=== PATIENT | male | born 1980 | race Caucasian/White ===

== ENCOUNTER 2021-10-30 12:36 | Inpatient (IN) | payer OTHER ==
[~2021-10-30] VITALS: Ht 198.1 cm; Wt 126.0 kg
[2021-10-30 13:25] LABS: BASOPHILS ABSOLUTE AUTO 0.07 K/mm3 (0.00-0.23); BASOPHILS PERCENT AUTO 0 % (0-2); EOSINOPHILS ABSOLUTE AUTO 0.23 K/mm3 (0.00-0.68); EOSINOPHILS PERCENT AUTO 2 % (0-6); Hematocrit 51.9 % (37.0-53.0); Hemoglobin 17.9 g/dL (13.5-17.5); IMMATURE GRAN PERCENT AUTO 1 % (0-1); LYMPHOCYTES ABSOLUTE AUTO 1.44 K/mm3 (0.84-5.20); LYMPHOCYTES PERCENT AUTO 9 % (21-46); MONOCYTES PERCENT AUTO 6 % (4-13); Mean Corpuscular HGB Conc 34.5 g/dL (31.5-36.5); Mean Corpuscular Volume 78 fL (80-100); Mean Platelet Volume 8.5 fL (9.1-12.4); NEUTROPHILS ABSOLUTE AUTO 12.77 K/mm3 (1.96-9.15); NEUTROPHILS PERCENT AUTO 82 % (41-73); Platelet Count 249 K/mm3 (150-400); RDW Coefficient Variation 11.7 % (11.7-14.2); Red Blood Cell Count 6.64 M/mm3 (4.30-5.90); White Blood Cell Count 15.61 K/mm3 (4.00-11.30)
[2021-10-30 13:42] LABS: Anion Gap 11 mmol/L (6-16); Blood Urea Nitrogen 18 mg/dL (8-24); Bun/Creatinine Ratio 23.3 (12.0-20.0); CO2, Blood 22 mmol/L (21-32); Calcium, Blood 9.3 mg/dL (8.5-10.1); Chloride, Blood 97 mmol/L (98-108); Creatinine, Blood 0.77 mg/dL (0.60-1.20); Glomerular Filtration Rate >60 (60-); Glucose, Blood 344 mg/dL (70-99); Potassium, Blood 4.4 mmol/L (3.5-5.5); Sodium, Blood 130 mmol/L (136-145)
[2021-10-30] MEDS ORDERED: GLIM2 PO (14:00)
[2021-10-30] MEDS ORDERED: LISI5 PO (14:00)
[2021-10-30] MEDS ORDERED: INSULANI SC (14:00)
[2021-10-30] MEDS ORDERED: MULTI-VITAMIN1 EAC2 PO (17:41)
[2021-10-30] MEDS ORDERED: COQ1050 MG PO (17:42)
--- NOTE | 2021-10-30 20:28 | NUR ---
PT ADMITTED TO ROOM 361 FROM ED APPROX 1715, AMBULATED TO BED INDEPENDANT. STATES HE IS NOT TOO UNCOMFORTABLE IF HE LAYS ON HIS SIDE, DECLINED PAIN MEDS. ORIENTED TO ROOM SET UP AND SAFETY. IVF STARTED AND ABX. WILL MEDICATE AND DRAIN ABCESS PER ORDER AFTER ADMISSION HX OBTAINED.
--- NOTE | 2021-10-30 20:29 | NUR ---
SUMM- PT ABCESS DRAINED LG AMOUNTS OF BEVERLY COLOR/PURULANT DISCHARGE WHEN PRESSED LIGHTLY. TOO PAINFUL FOR DEEP DRAINAGE. APPROX 75ML OF DRAINAGE. NOC RN WILL OBTIAN PICTURES. PT TOLERATING FOOD AND FLUID. HAS IVF INFUSING. STATES HE FEELS ALOT BETTER SINCE THE 3L OF NS IN THE ED. VICODIN AND TORADOL HELPFUL FOR COMFORT, BUT ABCESS EXTREMELY PAINFUL TO TOUCH. LAYING ON THE SIDE. CLEANSED ABCESS OPENING WITH NS AND WOUND CLEANSER, ABD AND UNDERWARE TO SECURE. WILL ORDER HEAT PAD AND TRY TO EXPELL MORE LATER.
[2021-10-31 06:12] LABS: BASOPHILS ABSOLUTE AUTO 0.05 K/mm3 (0.00-0.23); BASOPHILS PERCENT AUTO 0 % (0-2); EOSINOPHILS ABSOLUTE AUTO 0.31 K/mm3 (0.00-0.68); EOSINOPHILS PERCENT AUTO 3 % (0-6); Hematocrit 45.6 % (37.0-53.0); Hemoglobin 15.6 g/dL (13.5-17.5); IMMATURE GRAN ABSOLUTE AUTO 0.08 K/mm3 (0.00-0.10); IMMATURE GRAN PERCENT AUTO 1 % (0-1); LYMPHOCYTES ABSOLUTE AUTO 1.14 K/mm3 (0.84-5.20); LYMPHOCYTES PERCENT AUTO 10 % (21-46); MONOCYTES ABSOLUTE AUTO 0.84 K/mm3 (0.16-1.47); MONOCYTES PERCENT AUTO 7 % (4-13); Mean Corpuscular HGB 26.9 pg (26.0-34.0); Mean Corpuscular HGB Conc 34.2 g/dL (31.5-36.5); Mean Corpuscular Volume 79 fL (80-100); Mean Platelet Volume 8.7 fL (9.1-12.4); NEUTROPHILS ABSOLUTE AUTO 9.22 K/mm3 (1.96-9.15); NEUTROPHILS PERCENT AUTO 79 % (41-73); Platelet Count 226 K/mm3 (150-400); RDW Coefficient Variation 11.9 % (11.7-14.2); RDW Standard Deviation 33.7 fL (35.1-46.3); Red Blood Cell Count 5.81 M/mm3 (4.30-5.90); White Blood Cell Count 11.64 K/mm3 (4.00-11.30)
[2021-10-31 06:38] LABS: Anion Gap 6 mmol/L (6-16); Blood Urea Nitrogen 21 mg/dL (8-24); Bun/Creatinine Ratio 29.5 (12.0-20.0); CO2, Blood 23 mmol/L (21-32); Calcium, Blood 8.8 mg/dL (8.5-10.1); Chloride, Blood 104 mmol/L (98-108); Creatinine, Blood 0.71 mg/dL (0.60-1.20); Glomerular Filtration Rate >60 (60-); Glucose, Blood 355 mg/dL (70-99); Potassium, Blood 4.2 mmol/L (3.5-5.5); Sodium, Blood 133 mmol/L (136-145)
--- NOTE | 2021-10-31 06:42 | NUR ---
SHIFT SUMMARY AOX4. VSS. REPORTS 0-4/10 PAIN IN R GLUTE ABCESS. AT SHIFT CHANGE LAST NIGHT BOTH MYSELF & DAY NURSE PROVIDED WOUND CARE & EXPRESSED MOD AMOUNT BEVERLY COLOR PURULENT DRAINAGE & AFTER PT STATED HE FELT BETTER. HE REPORTS NO PAIN UNLESS ABCESS SITE TOUCHED. SKIN AROUND ABCESS IS RED, SWOLLEN, TENDER, DISCOLORED, THERE IS WHITE TISSUE ROUGHLY THE SIZE OF A DIME NOTED & DRAINAGE WEEPING OUT AROUND WHEN PRESSURE PLACED ON SKIN. RECIEVING IV ANTIBIOTICS, PENDING CULTURES FOR DC PLAN. CALL LIGHT IN REACH & PT ABLE TO MAKE NEEDS KNOWN.
[2021-10-31 17:21] LABS: Vancomycin, Trough 9.9 ug/mL (5.0-10.0)
--- NOTE | 2021-11-01 04:55 | NUR ---
SHIFT SUMMARY NO ACUTE CHANGES THIS SHIFT. AOX4. VSS. DENIES PAIN EXCEPT c PALPATION AROUND ABCESS SITE, THEN PAIN 2/10 HOWEVER TOLERABLE. DENIES NEED FOR PAIN MEDS. ABCESS SITE HAD ONLY SMALL AMOUNT BEVERLY PURULENT DRAINAGE TONIGHT, MUCH LESS THEN PREVIOUS NIGHT. HS CBG @498, INFORMED DR NEWSOME & HE ORDERED 15U LEVEMIR & SS INCULIN TO BE GIVEN @HS. PT HOPING TO DC HOME TODAY, STATES HE FEELS BETTER. CALL LIGHT IN REACH, WILL MONITOR.
[2021-11-01 08:19] LABS: Hematocrit 47.5 % (37.0-53.0); Mean Corpuscular HGB 26.9 pg (26.0-34.0); Mean Corpuscular HGB Conc 33.7 g/dL (31.5-36.5); Mean Corpuscular Volume 80 fL (80-100); Mean Platelet Volume 8.9 fL (9.1-12.4); Platelet Count 215 K/mm3 (150-400); RDW Coefficient Variation 11.8 % (11.7-14.2); RDW Standard Deviation 34.1 fL (35.1-46.3); Red Blood Cell Count 5.95 M/mm3 (4.30-5.90); White Blood Cell Count 6.82 K/mm3 (4.00-11.30)
[2021-11-01 08:36] LABS: Albumin, Blood 2.5 g/dL (3.4-5.0); Anion Gap 9 mmol/L (6-16); Blood Urea Nitrogen 14 mg/dL (8-24); Bun/Creatinine Ratio 20.7 (12.0-20.0); CO2, Blood 23 mmol/L (21-32); Calcium, Blood 8.6 mg/dL (8.5-10.1); Chloride, Blood 105 mmol/L (98-108); Creatinine, Blood 0.68 mg/dL (0.60-1.20); Glomerular Filtration Rate >60 (60-); Glucose, Blood 380 mg/dL (70-99); Phosphorus, Blood 3.5 mg/dL (2.5-4.9); Potassium, Blood 4.1 mmol/L (3.5-5.5); Sodium, Blood 137 mmol/L (136-145)
--- NOTE | 2021-11-02 05:15 | NUR ---
SHIFT SUMMARY AOX4. VSS. DENIES ANY PAIN @ABCESS SITE UNLESS TOUCHED DURING WOUND CARE. WOUND HAD ONLY SMALL AMOUNT BLOODY PURULENT DRAINAGE, SKIN AROUND ABCESS RED, FIRM, TENDER c LONG WHITE/JUAREZ FIBEROUS STRINGY TISSUE HANGING OUT OF WOUND BED. HS CBG @215, BETTER CONTROLLED THEN PREVIOUS NIGHT. PT HOPING TO DC HOME TODAY. CALL LIGHT IN REACH & PT ABLE TO MAKE NEEDS KNOWN. WILL MONITOR.
[2021-11-02 05:29] LABS: Albumin, Blood 2.7 g/dL (3.4-5.0); Anion Gap 5 mmol/L (6-16); Blood Urea Nitrogen 15 mg/dL (8-24); Bun/Creatinine Ratio 22.3 (12.0-20.0); CO2, Blood 27 mmol/L (21-32); Chloride, Blood 105 mmol/L (98-108); Creatinine, Blood 0.67 mg/dL (0.60-1.20); Glomerular Filtration Rate >60 (60-); Glucose, Blood 169 mg/dL (70-99); Phosphorus, Blood 3.3 mg/dL (2.5-4.9); Potassium, Blood 3.6 mmol/L (3.5-5.5); Sodium, Blood 137 mmol/L (136-145)
[2021-11-02] MEDS ORDERED: Acetaminophen325 M1 PO (13:29)
[2021-11-02] MEDS ORDERED: HUMALOG KW100 UNIT/1 SC ×2 (13:30→13:32)
[2021-11-02] MEDS ORDERED: AMOCLA875 PO (13:31)
[2021-11-02] MEDS ORDERED: VISBIOME 112.51 EACH PO (13:31)
== END 2021-11-02 15:24 | disposition home or self-care (01) | DRG 872 ==
LOC: ER 12:36 → MEDS 15:55
PROVIDERS: Emergency Medicine; ADMIT Internal Medicine
DX: A40.1 Sepsis due to streptococcus, group B (principal); L03.317 Cellulitis of buttock; K61.0 Anal abscess; E87.1 Hypo-osmolality and hyponatremia; L02.31 Cutaneous abscess of buttock; E86.0 Dehydration; L40.9 Psoriasis, unspecified; E11.65 Type 2 diabetes mellitus with hyperglycemia; I10 Essential (primary) hypertension; E66.9 Obesity, unspecified; Z68.32 Body mass index [BMI] 32.0-32.9, adult; Z86.14 Personal history of Methicillin resistant Staphylococcus aureus infection; Z98.890 Other specified postprocedural states; Z79.4 Long term (current) use of insulin; Z79.899 Other long term (current) drug therapy
CPT/HCPCS: 36415; 72193; 80048; 80069; 80202; 82947; 83036; 83605; 85025; 85027; 87040; 87070; 87075; 87147; 87205; 96365; 99284-25; A9270; J0295; J1650; J1815; J1885; J2543; J3370; J7030; J7040; J7050; J7060; Q9967

== ENCOUNTER 2025-03-10 18:09 | Inpatient (IN) | payer OTHER ==
[~2025-03-10] VITALS: Ht 195.6 cm; Wt 101.5 kg
[~2025-03-10 18:09] MED LIST: AMOCLA875 PO; Acetaminophen325 M1 PO; COQ1050 MG PO; GLIM2 PO; HUMALOG KW100 UNIT/1 SC; INSULANI SC; LISI5 PO; MULTI-VITAMIN1 EAC2 PO; VISBIOME 112.51 EACH PO
[2025-03-10] MEDS ORDERED: Ondansetron HCl 2 MG / ML 2ML Vial IV ONE (18:35)
[2025-03-10 19:08] LABS: BASOPHILS ABSOLUTE AUTO 0.07 K/mm3 (0.00-0.23); BASOPHILS PERCENT AUTO 0 % (0-2); EOSINOPHILS ABSOLUTE AUTO 0.07 K/mm3 (0.00-0.68); EOSINOPHILS PERCENT AUTO 0 % (0-6); Hematocrit 47.9 % (37.0-53.0); Hemoglobin 17.3 g/dL (13.5-17.5); IMMATURE GRAN ABSOLUTE AUTO 0.20 K/mm3 (0.00-0.10); IMMATURE GRAN PERCENT AUTO 1 % (0-1); LYMPHOCYTES ABSOLUTE AUTO 1.83 K/mm3 (0.84-5.20); LYMPHOCYTES PERCENT AUTO 11 % (21-46); MONOCYTES ABSOLUTE AUTO 1.04 K/mm3 (0.16-1.47); MONOCYTES PERCENT AUTO 7 % (4-13); Mean Corpuscular HGB Conc 36.1 g/dL (31.5-36.5); Mean Corpuscular Volume 76 fL (80-100); NEUTROPHILS ABSOLUTE AUTO 12.78 K/mm3 (1.96-9.15); NEUTROPHILS PERCENT AUTO 80 % (41-73); NRBC ABSOLUTE 0.00 K/mm3 (0.00-0.02); NRBC Auto 0.0 /100 WBC (0.0-0.2); Platelet Count 377 K/mm3 (150-400); RDW Coefficient Variation 12.3 % (11.7-14.2); RDW Standard Deviation 33.6 fL (35.1-46.3)
[2025-03-10 19:55] LABS: Alanine Aminotransfer (ALT/SGP 15 U/L (12-78); Albumin, Blood 2.6 g/dL (3.4-5.0); Albumin/Globulin Ratio 0.4 (0.8-1.8); Anion Gap 19 mmol/L (3-11); Aspartate Aminotrans (AST/SGOT 5 U/L (12-37); Bilirubin, Total 0.5 mg/dL (0.1-1.0); Blood Urea Nitrogen 10 mg/dL (8-24); CO2, Blood 13 mmol/L (21-32); Calcium, Blood 9.7 mg/dL (8.5-10.1); Chloride, Blood 100 mmol/L (98-108); Creatinine, Blood 0.52 mg/dL (0.60-1.20); Globulin, Blood 5.8 g/dL (2.2-4.0); Glucose, Blood 280 mg/dL (70-99); Potassium, Blood 3.7 mmol/L (3.5-5.5); Sodium, Blood 128 mmol/L (136-145); Total Protein, Blood 8.4 g/dL (6.4-8.2)
[2025-03-10] MEDS ORDERED: Piperacillin/Tazobactam Sod 4.5 GM in NS 100 ML IV ONE (23:30)
[2025-03-10] MEDS ORDERED: Vancomycin (Pharmacy Consult) IV PRN (23:30)
[2025-03-11] VITALS (17 sets, daily range): BP systolic 126–152; BP diastolic 76–94
[2025-03-11 00:28] LABS: C-REACTIVE PROTEIN, EXT RANGE >19.000 mg/dL (0.000-0.300)
[2025-03-11] MEDS ORDERED: Vancomycin HCL 2,500 MG in NS 500 ML IV ONE (00:55)
[2025-03-11] MEDS ORDERED: Clindamycin 600mg in D5W 50 ML IV ONE (01:50)
[2025-03-11] MEDS ORDERED: Ondansetron HCl 2 MG / ML 2ML Vial IV PRN (03:10)
[2025-03-11] MEDS ORDERED: Vancomycin (Pharmacy Consult) IV SCH (03:10)
[2025-03-11] MEDS ORDERED: HydrALAZINE HCl 20 MG / ML 1ML Vial IV PRN (03:20)
[2025-03-11] MEDS ORDERED: NS 1,000 ML IV SCH ×2 (04:00→08:25)
[2025-03-11 04:30] LABS: U Amphetamine Screen Not Detected; U Barbituate Screen Not Detected; U Benzodiazapine Screen Not Detected; U Buprenorphine Screen Not Detected; U Cannabinoids Screen Not Detected; U Cocaine Screen Not Detected; U Methadone Screen Not Detected; U Methamphetamine Screen Not Detected; U Opiates Screen Not Detected; U Oxycodone Screen Not Detected; U Phencyclidine Screen Not Detected
[2025-03-11] MEDS ORDERED: Piperacillin/Tazobactam Sod 4.5 GM in NS 100 ML IV SCH (06:00)
[2025-03-11] MEDS ORDERED: HUMIRA40 MG/0.2 INJ (06:14)
[2025-03-11 06:55] LABS: BASOPHILS ABSOLUTE AUTO 0.08 K/mm3 (0.00-0.23); BASOPHILS PERCENT AUTO 1 % (0-2); EOSINOPHILS ABSOLUTE AUTO 0.05 K/mm3 (0.00-0.68); EOSINOPHILS PERCENT AUTO 0 % (0-6); Hematocrit 45.2 % (37.0-53.0); Hemoglobin 15.6 g/dL (13.5-17.5); IMMATURE GRAN ABSOLUTE AUTO 0.33 K/mm3 (0.00-0.10); IMMATURE GRAN PERCENT AUTO 2 % (0-1); LYMPHOCYTES ABSOLUTE AUTO 1.80 K/mm3 (0.84-5.20); LYMPHOCYTES PERCENT AUTO 12 % (21-46); MONOCYTES ABSOLUTE AUTO 1.12 K/mm3 (0.16-1.47); MONOCYTES PERCENT AUTO 8 % (4-13); Mean Corpuscular HGB Conc 34.5 g/dL (31.5-36.5); Mean Corpuscular Volume 78 fL (80-100); NEUTROPHILS ABSOLUTE AUTO 11.46 K/mm3 (1.96-9.15); NEUTROPHILS PERCENT AUTO 77 % (41-73); NRBC ABSOLUTE 0.00 K/mm3 (0.00-0.02); NRBC Auto 0.0 /100 WBC (0.0-0.2); Platelet Count 334 K/mm3 (150-400); RDW Coefficient Variation 12.6 % (11.7-14.2); RDW Standard Deviation 35.5 fL (35.1-46.3)
--- NOTE | 2025-03-11 07:00 | NUR ---
ARRIVAL TO SURGICAL UNIT ROOM 228 FROM ER AT 0550. PT A/O X4, DRESSING TO RLE IS C/D/I. PT STOOD AND TRANSFERED TO BED FROM [facility]. PT ORIENTED TO ROOM, CALL LIGHT, AND UNIT POLICIES. UPON CHANGING INTO GOWN AND REMOVING SOCK FROM LLE, GREAT TOE IS NOTED TO BE BLACK AND ULCERATED. DISCUSSED WITH RADIOISOTOPE PRODUCTION OPERATOR, NOTIFIED DR. LEAL OF LEFT TOE ULCERATION.
[2025-03-11 07:07] LABS: Prothrombin Time Results 12.2 Sec (9.7-11.5)
[2025-03-11 07:19] LABS: Alanine Aminotransfer (ALT/SGP 13 U/L (12-78); Albumin, Blood 2.4 g/dL (3.4-5.0); Albumin/Globulin Ratio 0.5 (0.8-1.8); Anion Gap 20 mmol/L (3-11); Aspartate Aminotrans (AST/SGOT 7 U/L (12-37); Bilirubin, Total 0.4 mg/dL (0.1-1.0); Blood Urea Nitrogen 9 mg/dL (8-24); CHOL/HDL RATIO 3.9; CO2, Blood 11 mmol/L (21-32); Calcium, Blood 8.9 mg/dL (8.5-10.1); Chloride, Blood 104 mmol/L (98-108); Cholesterol 135 mg/dL (50-200); Creatinine, Blood 0.57 mg/dL (0.60-1.20); Globulin, Blood 5.0 g/dL (2.2-4.0); Glucose, Blood 289 mg/dL (70-99); HDL Cholesterol 35 mg/dL (>39); LDL/HDL RATIO 2.4; Low Density Lipoprotein Chol 83 mg/dL (0-110); Potassium, Blood 3.7 mmol/L (3.5-5.5); Sodium, Blood 131 mmol/L (136-145); Total Protein, Blood 7.4 g/dL (6.4-8.2); Triglycerides 86 mg/dL (30-160); Very Low Density Lipoprot Chol 17 mg/dL (6-32)
[2025-03-11] MEDS ORDERED: Insulin Regular 100 UNIT/ML 10ML Vial SC SCH (07:30)
--- NOTE | 2025-03-11 07:42 | NUR ---
DR. LEAL AT BEDSIDE THIS AM. NEW ORDERS RECEIVED FOR DRESSING OF LEFT TOE WOUND. GENTLY CLEAN, AND DRESS WITH XEROFORM AND GAUZE.
[2025-03-11] MEDS ORDERED: Clindamycin 600mg in D5W 50 ML IV SCH (08:00)
[2025-03-11] MEDS ORDERED: Lactobacil 2-S.Thermo-Bifido 1 1 Cap PO SCH (09:00)
[2025-03-11] MEDS ORDERED: Heparin Sodium,Porcine 5,000 UNIT/0.5 ML SDV SC SCH (09:00)
[2025-03-11 10:45] LABS: Anion Gap 19.0 mmol/L (3-11); Blood Urea Nitrogen 9.0 mg/dL (8-24); CO2, Blood 13.0 mmol/L (21-32); Calcium, Blood 8.9 mg/dL (8.5-10.1); Chloride, Blood 106.0 mmol/L (98-108); Creatinine, Blood 0.58 mg/dL (0.60-1.20); Glucose, Blood 274.0 mg/dL (70-99); Potassium, Blood 3.7 mmol/L (3.5-5.5); Sodium, Blood 134.0 mmol/L (136-145)
[2025-03-11] MEDS ORDERED: Bupivacaine 0.5% W/EPI 1:200000 SDV 30 ML Vial ONE (15:22)
[2025-03-11] MEDS ORDERED: FentaNYL Citrate 50 MCG/ML 2 ML Injection ONE (15:25)
--- NOTE | 2025-03-11 15:29 | NUR ---
PT HAS 20G IV TO LEFT AC THAT IS LEAKING, WILL START NEW PRIOR TO ROLLBACK TO OR.
--- NOTE | 2025-03-11 15:34 | NUR ---
PT TO OR AT ABOUT 1500
--- NOTE | 2025-03-11 15:35 | NUR ---
Pt brought from Surgical Floor via gurney to Day Surgery for procedure w/Dr. Arroyo. History, Chart, Medications and Allergies reviewed before start of procedure. Patient confirms NPO status and agrees with scheduled surgery. Pre-Op teaching done. Pt verbalizes understanding. Pt belongings left in personal room on surgical floor for safekeeping. Pt contact lenses removed and placed in PACU for safekeeping.
[2025-03-11] MEDS ORDERED: Ondansetron HCl 2 MG / ML 2ML Vial ONE (15:39)
[2025-03-11] MEDS ORDERED: Dexamethasone Sod Phos 10 MG/ML 1ML VIAL ONE (15:39)
[2025-03-11] MEDS ORDERED: Metoclopramide HCl 5MG / ML 2ML Vial IV PRN (15:50)
[2025-03-11] MEDS ORDERED: FentaNYL Citrate 50 MCG/ML 2 ML Injection IV PRN ×2 (15:55)
[2025-03-11] MEDS ORDERED: Labetalol HCL 5 MG/ML 4ML Injection (Single Dose) IV PRN (15:55)
[2025-03-11] MEDS ORDERED: HYDROmorphone HCl/Pf 1MG SYR IV PRN ×2 (15:55)
--- NOTE | 2025-03-11 17:29 | NUR ---
POST OP: REPORT RECEIVED FROM BEVERLY PLANT MANAGER. PT A/O ON ARRIVAL. SURGICAL SITE WNL. PT DENIES PAIN, ABLE TO WIGGLE TOES. BLE ELEVATED. ANTIBIOTIC STARTED. CALL LIGHT IN REACH
[2025-03-11 20:17] LABS: Anion Gap 18.0 mmol/L (3-11); Blood Urea Nitrogen 9.0 mg/dL (8-24); CO2, Blood 14.0 mmol/L (21-32); Calcium, Blood 8.7 mg/dL (8.5-10.1); Chloride, Blood 105.0 mmol/L (98-108); Creatinine, Blood 0.65 mg/dL (0.60-1.20); Glucose, Blood 281.0 mg/dL (70-99); Potassium, Blood 4.1 mmol/L (3.5-5.5); Sodium, Blood 133.0 mmol/L (136-145)
[2025-03-11] MEDS ORDERED: Insulin Glargine,Hum.Rec.Anlog 100 UNIT/ML 3MLSYR SC SCH (21:00)
[2025-03-11 21:46] LABS: pH Blood Venous 7.29 (7.34-7.37)
[2025-03-11 22:18] LABS: Anion Gap 17.0 mmol/L (3-11); Blood Urea Nitrogen 10.0 mg/dL (8-24); CO2, Blood 13.0 mmol/L (21-32); Calcium, Blood 8.9 mg/dL (8.5-10.1); Chloride, Blood 106.0 mmol/L (98-108); Creatinine, Blood 0.59 mg/dL (0.60-1.20); Glucose, Blood 262.0 mg/dL (70-99); Potassium, Blood 4.0 mmol/L (3.5-5.5); Sodium, Blood 132.0 mmol/L (136-145)
[2025-03-11] MEDS ORDERED: D5W-1/2NS 1,000 ML IV SCH (22:55)
[2025-03-11] MEDS ORDERED: Insulin Human Regular 100 UNIT in NS 100 ML IV SCH (23:05)
--- NOTE | 2025-03-11 23:34 | NUR ---
IN COMMUNICATION WITH JOSÉ MIGUEL TRAORE REGARDING LABS ORDERED BY DR BARFIELD AND FURTHER LABS WERE ORDERED BY JOSÉ MIGUEL.PER FOLLOW UP COMMUNICATION,ORDERS WERE RECEIVED TO TRANSFER PT TO ICU.
--- NOTE | 2025-03-11 23:51 | NUR ---
UPDATE PT TRANSFERRED TO ICU PER ORDERS VIA HOSPITAL BED. REPORT GIVEN TO RECEIVING RN AT THIS TIME. PT AND SPOUSE AWARE.
[2025-03-12] VITALS (21 sets, daily range): BP systolic 111–138; BP diastolic 66–97
[2025-03-12 00:50] LABS: BASOPHILS ABSOLUTE AUTO 0.06 K/mm3 (0.00-0.23); BASOPHILS PERCENT AUTO 0 % (0-2); EOSINOPHILS ABSOLUTE AUTO 0.00 K/mm3 (0.00-0.68); EOSINOPHILS PERCENT AUTO 0 % (0-6); Hematocrit 40.7 % (37.0-53.0); Hemoglobin 14.6 g/dL (13.5-17.5); IMMATURE GRAN ABSOLUTE AUTO 0.20 K/mm3 (0.00-0.10); IMMATURE GRAN PERCENT AUTO 1 % (0-1); LYMPHOCYTES ABSOLUTE AUTO 0.87 K/mm3 (0.84-5.20); LYMPHOCYTES PERCENT AUTO 6 % (21-46); MONOCYTES ABSOLUTE AUTO 0.50 K/mm3 (0.16-1.47); MONOCYTES PERCENT AUTO 3 % (4-13); Mean Corpuscular HGB Conc 35.9 g/dL (31.5-36.5); Mean Corpuscular Volume 77 fL (80-100); NEUTROPHILS ABSOLUTE AUTO 13.11 K/mm3 (1.96-9.15); NEUTROPHILS PERCENT AUTO 89 % (41-73); NRBC ABSOLUTE 0.00 K/mm3 (0.00-0.02); NRBC Auto 0.0 /100 WBC (0.0-0.2); Platelet Count 306 K/mm3 (150-400); RDW Coefficient Variation 12.6 % (11.7-14.2); RDW Standard Deviation 35.4 fL (35.1-46.3)
[2025-03-12 01:18] LABS: Anion Gap 20 mmol/L (3-11); Blood Urea Nitrogen 10 mg/dL (8-24); CO2, Blood 12 mmol/L (21-32); Calcium, Blood 8.7 mg/dL (8.5-10.1); Chloride, Blood 103 mmol/L (98-108); Creatinine, Blood 0.56 mg/dL (0.60-1.20); Glucose, Blood 324 mg/dL (70-99); Potassium, Blood 4.1 mmol/L (3.5-5.5); Sodium, Blood 131 mmol/L (136-145); Vancomycin, Trough 17.0 ug/mL (5.0-10.0)
[2025-03-12 06:22] LABS: Anion Gap 17.0 mmol/L (3-11); Blood Urea Nitrogen 8.0 mg/dL (8-24); CO2, Blood 12.0 mmol/L (21-32); Calcium, Blood 8.2 mg/dL (8.5-10.1); Chloride, Blood 106.0 mmol/L (98-108); Creatinine, Blood 0.51 mg/dL (0.60-1.20); Glucose, Blood 283.0 mg/dL (70-99); Potassium, Blood 4.6 mmol/L (3.5-5.5); Sodium, Blood 130.0 mmol/L (136-145)
[2025-03-12 06:32] LABS: Source, Urine Clean Catch
[2025-03-12 06:36] LABS: Bilirubin, Urine Neg (Neg); Glucose Qualitative, Urine 4+ (Neg); Ketones, Urine 4+ (Neg); Leukocyte Esterase, Urine Neg (Neg); Protein, Urine 1+ (Neg); Specific Gravity, Urine 1.025 (1.003-1.022); Urobilinogen, Urine NORM (Normal)
[2025-03-12 06:38] LABS: Color, Urine Pale Yellow (P-Yellow)
--- NOTE | 2025-03-12 06:59 | NUR ---
STAFF DEVELOPER SUMMARY: PATIENT TRANSFERED TO ICU 15. ALERT AND ORIENT X4. REPORTS NO PAIN AT THIS TIME. POD 1 RIGHT FOOT 1ST AND 2ND TOE AMPUTATION. WOUND SITE COVERED WITH JUAN BANDAGE CLEAN, DRY, AND INTACT. NSR ON MONITOR 60S-70S. RA. NPO AT THIS TIME. URINATES VIA URINAL. SAMPLE RECIEVED AND SENT TO LAB. Q1 HOUR BG. ON INSULIN GTT AT 5.85 AND D5 1/2 NS AT 200 CC/HR. NO S/S OF DISTRESS OR DISCOMFORT. SAFETY INTACT
--- NOTE | 2025-03-12 09:16 | NUR ---
ASSUMTPION OF CARE [facility] PT RESTING IN BED, ALERT AND ORIENTED X4. PT ANSWERS QUESTIONS APPROPRIATLEY, FOLLOWS DIRECTION WHEN PROMPTED AND IS ABLE TO MAKE HIS NEEDS KNOWN. PT MOVES EXTREMITIES EQUALLY BILATERALLY, DECREASED SENSATION IN BLE WHICH PATIENT STATES IS NORMAL FOR HIM. DRESSING IN PLACE TO RIGHT FOOT POST AMPUTATION, DRESSING CHANGED THIS AM BY DR. LEAL. JUAN WRAP IN PLACE FOR ULCER TO LEFT FOOT, PT DENIES PAIN AT TIME OF ASSESSMENT. HR 60-80'S SINUS, MAP >65, PT DENIES CP/PRESSURE. PT ON RA, OXYGEN SATURATION >95%. ABDOMEN SOFT, BOWEL TONES HYPOACTIVE, DENIES N/V. PT USES URINAL TO VOID. PIV X2 IN PLACE TO LFA. D5 1/2 NS INFUSING AT 200MLS/HR, INSULIN INFUSING AT 5.85UNITS/HR, SEE FLOWSHEET FOR TITRATIONS. BED IN LOWEST POSITION, CALL LIGHT WITHIN REACH, CARE CONTINUES.
[2025-03-12 10:33] LABS: Anion Gap 13.0 mmol/L (3-11); Blood Urea Nitrogen 6.0 mg/dL (8-24); CO2, Blood 18.0 mmol/L (21-32); Calcium, Blood 7.6 mg/dL (8.5-10.1); Chloride, Blood 102.0 mmol/L (98-108); Creatinine, Blood 0.55 mg/dL (0.60-1.20); Glucose, Blood 587.0 mg/dL (70-99); Magnesium, Blood 1.7 mg/dL (1.6-2.4); Phosphorus, Blood 1.4 mg/dL (2.5-4.9); Potassium, Blood 2.7 mmol/L (3.5-5.5); Sodium, Blood 130.0 mmol/L (136-145)
[2025-03-12] MEDS ORDERED: Potassium Phosphate Dibasic 30 MM in Dextrose 5% 500 ML IV ONE (10:40)
[2025-03-12] MEDS ORDERED: Piperacillin/Tazobactam Sod 4.5 GM in NS 100 ML IV SCH (12:00)
[2025-03-12 15:00] LABS: Anion Gap 10.0 mmol/L (3-11); Blood Urea Nitrogen 5.0 mg/dL (8-24); CO2, Blood 22.0 mmol/L (21-32); Calcium, Blood 8.5 mg/dL (8.5-10.1); Chloride, Blood 105.0 mmol/L (98-108); Creatinine, Blood 0.55 mg/dL (0.60-1.20); Glucose, Blood 221.0 mg/dL (70-99); Magnesium, Blood 1.7 mg/dL (1.6-2.4); Phosphorus, Blood 2.1 mg/dL (2.5-4.9); Potassium, Blood 2.8 mmol/L (3.5-5.5); Sodium, Blood 134.0 mmol/L (136-145)
[2025-03-12] MEDS ORDERED: Insulin Glargine,Hum.Rec.Anlog 100 UNIT/ML 3MLSYR SC ONE (15:25)
[2025-03-12] MEDS ORDERED: Insulin Human Lispro 100 Units/ML 3ML Syringe SC SCH (16:30)
--- NOTE | 2025-03-12 18:00 | NUR ---
SHIFT SUMMARY PT CONTINUES TO REST IN BED, ALERT AND ORIENTED X4. PT ANSWERS QUESTIONS APPROPRIATLEY, FOLLOWS DIRECTION WHEN PROMPTED AND IS ABLE TO MAKE HIS NEEDS KNOWN. PT MOVES EXTREMITIES EQUALLY BILATERALLY. AMPUTATION TO RIGHT TOES REMAINS UNCHANGED, DRESSING REMAINS IN PLACE C/D/I. PT DENIES PAIN. DRESSING IN PLACE TO LEFT LEG FOR ULCER ON LEFT TOE, UNCHANGED, DRESSING C/D/I. PT WORKED WITH PHYSICAL THERAPY THIS SHIFT, NON WEIGHT BEARING TO RIGHT LEG. HR 60-80'S SINUS, MAP >65. PT DENIES CP/PRESSURE. PT ON RA, OXYGEN SATURATION >95%. ABDOMEN SOFT, BOWEL TONES ACTIVE THROUGHOUT. PT TOLERATING PO INTAKE, NO N/V. PT USES URINAL TO VOID. PIV IN PLACE TO LFA X2, POWERGLIDE IN PLACE TO KVNG. PT TRANSITIONED OFF INSULIN DRIP THIS SHIFT. BED IN LOWEST POSITION, CALL LIGHT WITHIN REACH, CARE CONTINUES.
--- NOTE | 2025-03-12 18:50 | NUR ---
PT UPDATE LEFT FOOT DRESSING CHANGED, XEROFORM, KERLEX AND JUAN WRAP REPLACED. PICTURES TAKEN, PLACED IN CHART.
[2025-03-12 18:51] LABS: Magnesium, Blood 1.7 mg/dL (1.6-2.4)
[2025-03-12 18:55] LABS: Anion Gap 10.0 mmol/L (3-11); Blood Urea Nitrogen 6.0 mg/dL (8-24); CO2, Blood 23.0 mmol/L (21-32); Calcium, Blood 8.8 mg/dL (8.5-10.1); Chloride, Blood 105.0 mmol/L (98-108); Creatinine, Blood 0.44 mg/dL (0.60-1.20); Glucose, Blood 210.0 mg/dL (70-99); Phosphorus, Blood 2.5 mg/dL (2.5-4.9); Potassium, Blood 2.8 mmol/L (3.5-5.5); Sodium, Blood 135.0 mmol/L (136-145)
[2025-03-12] MEDS ORDERED: Insulin Glargine,Hum.Rec.Anlog 100 UNIT/ML 3MLSYR SC SCH (21:00)
[2025-03-13] VITALS (7 sets, daily range): BP systolic 128–152; BP diastolic 83–101
[2025-03-13 04:20] LABS: BASOPHILS ABSOLUTE AUTO 0.06 K/mm3 (0.00-0.23); BASOPHILS PERCENT AUTO 1 % (0-2); EOSINOPHILS ABSOLUTE AUTO 0.12 K/mm3 (0.00-0.68); EOSINOPHILS PERCENT AUTO 1 % (0-6); Hematocrit 38.9 % (37.0-53.0); Hemoglobin 14.0 g/dL (13.5-17.5); IMMATURE GRAN ABSOLUTE AUTO 0.12 K/mm3 (0.00-0.10); IMMATURE GRAN PERCENT AUTO 1 % (0-1); LYMPHOCYTES ABSOLUTE AUTO 1.67 K/mm3 (0.84-5.20); LYMPHOCYTES PERCENT AUTO 18 % (21-46); MONOCYTES ABSOLUTE AUTO 0.87 K/mm3 (0.16-1.47); MONOCYTES PERCENT AUTO 9 % (4-13); Mean Corpuscular HGB Conc 36.0 g/dL (31.5-36.5); Mean Corpuscular Volume 76 fL (80-100); NEUTROPHILS ABSOLUTE AUTO 6.47 K/mm3 (1.96-9.15); NEUTROPHILS PERCENT AUTO 70 % (41-73); NRBC ABSOLUTE 0.00 K/mm3 (0.00-0.02); NRBC Auto 0.0 /100 WBC (0.0-0.2); Platelet Count 268 K/mm3 (150-400); RDW Coefficient Variation 12.4 % (11.7-14.2); RDW Standard Deviation 34.1 fL (35.1-46.3)
[2025-03-13 04:42] LABS: Alanine Aminotransfer (ALT/SGP 10.0 U/L (12-78); Albumin, Blood 2.0 g/dL (3.4-5.0); Albumin/Globulin Ratio 0.5 (0.8-1.8); Anion Gap 13.0 mmol/L (3-11); Aspartate Aminotrans (AST/SGOT 7.0 U/L (12-37); Bilirubin, Total 0.4 mg/dL (0.1-1.0); Blood Urea Nitrogen 7.0 mg/dL (8-24); CO2, Blood 19.0 mmol/L (21-32); Calcium, Blood 8.7 mg/dL (8.5-10.1); Chloride, Blood 108.0 mmol/L (98-108); Creatinine, Blood 0.53 mg/dL (0.60-1.20); Globulin, Blood 4.1 g/dL (2.2-4.0); Glucose, Blood 276.0 mg/dL (70-99); Potassium, Blood 3.5 mmol/L (3.5-5.5); Sodium, Blood 136.0 mmol/L (136-145); Total Protein, Blood 6.1 g/dL (6.4-8.2)
--- NOTE | 2025-03-13 06:16 | NUR ---
SHIFT SUMMARY PT HAS TOLERATED NIGHT WELL WITH NO SIGNIFICANT EVENTS OR CHANGES IN STATUS. PT HAS BEEN ABLE TO REST COMFORTABLY IN ROOM OVERNIGHT. PT HAS HAD NO COMPLAINTS OF PAIN. PT ALERT AND ORIENTED X 4 AND HAS BEEN CALL LIGHT APPROPRIATE. PT CONTINUES TO VOID INTO URINAL. PT HAS BEEN ABLE TO REPOSITION SELF IN BED. VITAL SIGNS HAVE BEEN STABLE THROUGHOUT NIGHT. CALL LIGHT WITHIN REACH. WILL CONTINUE TO MONITOR UNTIL REPORT PASSED TO DAY SHIFT TEAM.
[2025-03-13] MEDS ORDERED: NS 1,000 ML IV SCH (07:55)
[2025-03-13] MEDS ORDERED: CefTRIAXone Sodium 2,000 MG in NS 100 ML IV SCH (09:00)
--- NOTE | 2025-03-13 09:43 | NUR ---
AM NOTE... ASSUMED CARE OF PT AT 0700, PT IS A&Ox4. PT HAS JUAN DRESSING TO THIS RIGHT FOOT S/P 1ST AND 2ND TOE AMPUTATION, LEFT FOOT HAS JUAN WRAP TO COVER WOUND TO THE LEFT GREAT TOE. PT IS ON RA WITH O2 SATS>95% L/S CLEAR. PT'S VS STABLE. PT UP WITH RN ASSIST W/FWW NWB TO THE RIGHT FOOT.
[2025-03-13] MEDS ORDERED: Insulin Human Lispro 100 Units/ML 3ML Syringe SC ONE (12:25)
[2025-03-13] MEDS ORDERED: Insulin Glargine-Yfgn 100 Unit/mL 3 ML SYR SC SCH (12:25)
[2025-03-13 14:20] LABS: Anion Gap 8.0 mmol/L (3-11); Blood Urea Nitrogen 9.0 mg/dL (8-24); CO2, Blood 25.0 mmol/L (21-32); Calcium, Blood 8.8 mg/dL (8.5-10.1); Chloride, Blood 105.0 mmol/L (98-108); Creatinine, Blood 0.68 mg/dL (0.60-1.20); Glucose, Blood 348.0 mg/dL (70-99); Potassium, Blood 3.9 mmol/L (3.5-5.5); Sodium, Blood 134.0 mmol/L (136-145)
[2025-03-13] MEDS ORDERED: Piperacillin/Tazobactam Sod 4.5 GM in NS 100 ML IV SCH (15:00)
[2025-03-13] MEDS ORDERED: Insulin Human Lispro 100 Units/ML 3ML Syringe SC SCH (16:30)
--- NOTE | 2025-03-13 17:16 | NUR ---
SHIFT SUMMARY.... NO ACUTE NEGATIVE CHANGES NOTED THIS SHIFT. PT'S VS STABLE. THE PT'S DRESSINGS ON BOTH FEET WERE CHANGED TODAY, PER DR. LEAL THE DRESSINGS ARE TO BE CHANGED EVERY OTHER DAY, NEXT DRESSING CHANGE IS TO BE ON 03/15/25. PT IS MOVING TO THE MEDICAL FLOOR ROOM 342, REPORT GIVEN TO LORI GALLAGHER. ALL PT'S BELONGINGS PACKED AND BEING SENT WITH THE PT.
--- NOTE | 2025-03-13 17:57 | NUR ---
Patient arrived to room 342 via gurney from ICU at 1737. Patient denied pain, SOB, N/V/D, CP/pressure. Dressing to bilateral feet C/D/I and changed by ICU nurse prior to arrival; will be due for change on Sunday unless becomes soiled or dislodged. Patient oriented to room and call light within reach, bed in lowest position. Will continue to monitor until next shift nurse arrives and report is given.
[2025-03-13] MEDS ORDERED: Insulin Glargine,Hum.Rec.Anlog 100 UNIT/ML 3MLSYR SC SCH ×2 (21:00→21:04)
--- NOTE | 2025-03-14 02:57 | NUR ---
SHIFT SUMMARY NO ACUTE EVENTS DURING THIS SHIFT. PT DENIES PAIN AND DISCOMFORT. CONTINUING EDUCATION R/T INSULIN ADMINISTRATION AND DM2. HS BG 269. FAMILY BY THE BEDSIDE AT HS. RIGHT FOOT DRESSING C/D/I. KEFT DRESSING C/D/I. PT IS A/O X4, ABLE TO MAKE HIS NEEDS KNOWN AND COOPERATIVE WITH CARE. BED AT THE LOWEST POSITION, CALL LIGHT W/I REACH. INFUSING 2/2 BAG OF NS.
[2025-03-14 04:05] VITALS: BP 150/92
[2025-03-14 06:04] LABS: BASOPHILS ABSOLUTE AUTO 0.04 K/mm3 (0.00-0.23); BASOPHILS PERCENT AUTO 1 % (0-2); EOSINOPHILS ABSOLUTE AUTO 0.22 K/mm3 (0.00-0.68); EOSINOPHILS PERCENT AUTO 3 % (0-6); Hematocrit 37.4 % (37.0-53.0); Hemoglobin 13.5 g/dL (13.5-17.5); IMMATURE GRAN ABSOLUTE AUTO 0.08 K/mm3 (0.00-0.10); IMMATURE GRAN PERCENT AUTO 1 % (0-1); LYMPHOCYTES ABSOLUTE AUTO 1.88 K/mm3 (0.84-5.20); LYMPHOCYTES PERCENT AUTO 26 % (21-46); MONOCYTES ABSOLUTE AUTO 0.71 K/mm3 (0.16-1.47); MONOCYTES PERCENT AUTO 10 % (4-13); Mean Corpuscular HGB Conc 36.1 g/dL (31.5-36.5); Mean Corpuscular Volume 77 fL (80-100); NEUTROPHILS ABSOLUTE AUTO 4.40 K/mm3 (1.96-9.15); NEUTROPHILS PERCENT AUTO 60 % (41-73); NRBC ABSOLUTE 0.00 K/mm3 (0.00-0.02); NRBC Auto 0.0 /100 WBC (0.0-0.2); Platelet Count 243 K/mm3 (150-400); RDW Coefficient Variation 12.5 % (11.7-14.2); RDW Standard Deviation 35.0 fL (35.1-46.3)
[2025-03-14 06:23] LABS: Anion Gap 9.0 mmol/L (3-11); Blood Urea Nitrogen 5.0 mg/dL (8-24); CO2, Blood 24.0 mmol/L (21-32); Calcium, Blood 8.7 mg/dL (8.5-10.1); Chloride, Blood 106.0 mmol/L (98-108); Creatinine, Blood 0.58 mg/dL (0.60-1.20); Glucose, Blood 233.0 mg/dL (70-99); Potassium, Blood 3.2 mmol/L (3.5-5.5); Sodium, Blood 136.0 mmol/L (136-145)
[2025-03-14 07:25] VITALS: BP 152/97
[2025-03-14] MEDS ORDERED: MetFORMIN HCl 500 mg PO SCH (09:00)
[2025-03-14 15:48] VITALS: BP 140/95
[2025-03-14 19:11] VITALS: BP 141/90
--- NOTE | 2025-03-14 19:38 | NUR ---
End of shift summary: Patient is alert and oriented x4; pleasant and cooperative with care. Patient with no acute changes this shift; denied pain, CP, SOB, N/V/D. Patient up to BR today with use of FWW for BM. Patient eager to discharge home tomorrow and education completed on use of Insulin pen. Patient verbalizes and demonstrates good knowledge and understanding. Bilateral foot dressings are C/D/I and due to be changed tomorrow 03/15/25. Patient utilizes call light appropriately; call light within reach and bed in lowest postion. Report given to night warehouse selector nurse.
[2025-03-14] MEDS ORDERED: Insulin Glargine,Hum.Rec.Anlog 100 UNIT/ML 3MLSYR SC SCH (21:00)
--- NOTE | 2025-03-15 03:37 | NUR ---
DELIVERY TRUCK DRIVER HEAVY SUMMARY VSS. ALERT AND ORIENTED. COOPERATIVE WITH CARE. BLOOD SUGAR MONITORED. DISPLAYED ABILITY TO GIVE OWN INSULIN SHOTS WITH SUPERVISION. ABLE TO REPOSITION SELF IN BED WITHOUT ASSISTANCE, UP AD CODY WITH ASSIST. HAS BEEN RESTING QUIETLY WITH FEW INTERRUPTIONS. DRESSING OF RLE CDI AND INTACT. CALL LIGHT IN REACH, RAILS UP X 2 AND BED IN LOW POSITION FOR SAFETY. WILL CONTINUE TO MONITOR.
[2025-03-15 04:54] VITALS: BP 154/94
--- NOTE | 2025-03-15 07:29 | NUR ---
ASSUMED CARE OF PATIENT AT THIS TIME, BEDSIDE REPORT FROM EDER GALLAGHER. PATIENT RESTING IN BED. CHART REVIEWED.
[2025-03-15 07:40] VITALS: BP 160/97
[2025-03-15] MEDS ORDERED: NS 250 ML IV PRN (09:25)
[2025-03-15] MEDS ORDERED: AMOCLA875 PO (11:52)
[2025-03-15] MEDS ORDERED: Aspir 8181 MG PO (11:53)
[2025-03-15] MEDS ORDERED: LACT PO (11:56)
[2025-03-15] MEDS ORDERED: BASAGLAR K100 UNIT/1 SC (11:56)
[2025-03-15] MEDS ORDERED: LOSA50 PO (11:57)
[2025-03-15] MEDS ORDERED: METF500 PO (11:58)
[2025-03-15] MEDS ORDERED: SITA100T2 PO (11:59)
--- NOTE | 2025-03-15 13:42 | NUR ---
DISCHARGE NOTE PATIENT IV AND POWERGLIDE REMOVED, EDUCATION PROVIDED ON NEW MEDICATIONS AND DISEASES PROCESSES. FAMILY AT BEDSIDE, EDUCATION AND UPDATES SHARED WITH THEM ALSO. PATIENT DISCHARGED TO HOME, TAKEN TO EXIT BY WHEELCHAIR. DENIED NEEDS OR QUESTIONS.
== END 2025-03-15 13:20 | disposition home health service (06) | DRG 853 ==
LOC: ER 18:09 → SURS 03-11 03:04 → ICUE 03-11 23:58 → MEDS 03-13 17:33 → ENPENDDIS 03-15 11:42 → MEDS 03-15 13:20
PROVIDERS: Internal Medicine; Nurse Practitioner Acute Care; Podiatrist Foot & Ankle Surgery; Student in an Organized Health Care Education/Training Program; ADMIT Internal Medicine
PROC: 0Y6R0Z0 Detachment at Right 2nd Toe, Complete, Open Approach (ICD-10-PCS; 2025-03-11)
PROC: 3E03329 Introduction of Other Anti-infective into Peripheral Vein, Percutaneous Approach (ICD-10-PCS; 2025-03-11)
PROC: 0Y6P0Z0 Detachment at Right 1st Toe, Complete, Open Approach (ICD-10-PCS; principal; 2025-03-11 15:30)
DX: A41.9 Sepsis, unspecified organism (principal); A48.0 Gas gangrene; E11.10 Type 2 diabetes mellitus with ketoacidosis without coma; E11.52 Type 2 diabetes mellitus with diabetic peripheral angiopathy with gangrene; L02.611 Cutaneous abscess of right foot; M86.8X7 Other osteomyelitis, ankle and foot; L03.031 Cellulitis of right toe; Z79.4 Long term (current) use of insulin; Z79.899 Other long term (current) drug therapy
CPT/HCPCS: 36415; 73660; 73701; 80048; 80053; 80061; 80202; 82010; 82803; 82947; 83036; 83605; 83735; 84100; 85025; 85610; 85651; 86140; 87040; 87070; 87075; 87147; 87205; 88305; 88311; 93005; 93010; 93922; 93971; 96365; 96367; 96375; 97110; 97116; 97162; 97530; 99285-25; A9270; C1751; J0696; J1100; J1644; J1815; J2405; J2543; J2704; J3010; J3373; J7030; J7040; J7042; J7050; J7060; J7120; Q9967